=== PATIENT | male | born 1955 | race Caucasian/White ===

== ENCOUNTER 2017-03-12 09:45 | Inpatient (IN) | payer OTHER ==
[~2017-03-12] VITALS: Ht 157.5 cm; Wt 68.0 kg
[2017-03-12] MEDS ORDERED: METFORMIN HCL500 MG PO (11:43)
[2017-03-12] MEDS ORDERED: DIOVAN40 MG PO (11:43)
== END 2017-03-19 11:07 | disposition home or self-care (01) | DRG 708 ==
LOC: SURH 03-17 05:30 → O/R 03-17 05:30 → SURH 03-17 07:00
PROVIDERS: Urology
PROC: 07TC4ZZ Resection of Pelvis Lymphatic, Percutaneous Endoscopic Approach (ICD-10-PCS; 2017-03-17)
PROC: 0VT34ZZ Resection of Bilateral Seminal Vesicles, Percutaneous Endoscopic Approach (ICD-10-PCS; 2017-03-17)
PROC: 0VT04ZZ Resection of Prostate, Percutaneous Endoscopic Approach (ICD-10-PCS; principal; 2017-03-17 07:00)
DX: C61 Malignant neoplasm of prostate (principal); I10 Essential (primary) hypertension